=== PATIENT | female | born 1990 | race Two or more races ===

== ENCOUNTER 2025-03-07 11:14 | Emergency (ER) | payer OTHER ==
[~2025-03-07] VITALS: Ht 162.6 cm; Wt 93.6 kg
[2025-03-07 12:09] VITALS: BP 128/87; PULSE 97; RESP 16; TEMP 98; O2SAT 97
[2025-03-07] MEDS ORDERED: AZIT-43 PO (12:27)
[2025-03-07] MEDS ORDERED: BENZ100C97 PO (12:27)
[2025-03-07] MEDS ORDERED: PROM1SOL4 PO (12:27)
--- NOTE | 2025-03-07 12:28 | ED.PDOC ---
SOB-HPI HPI Comments This is a pleasant 34-year-old female with a MHx that presents for a nonpr oductive cough x two months. Symptoms come and go. Reports cough for symptoms with the last two days. Admits to sick contacts. States that her mother was recently diagnosed with a bronchitis. Patient not taking medications at this time. Denies any aggravating or alleviating symptoms. 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 Hx Family History Family History: Reviewed,noncontributory to illness Social History Smoker: Non-Smoker Alcohol: Denies ETOH Use Drugs: Denies Drug Use Lives In: Home All Other Systems: Reviewed and Negative (per hpi) Physical Exam General Appearance: No Apparent Distress, Normal HEENT: Normal ENT Inspection, Pharynx Normal, TMs Normal Neck: Full Range of Motion, Non-Tender, Normal, Normal Inspection Respiratory: Chest Non-Tender, Lungs Clear, No Accessory Muscle Use, No Respiratory Distress, Normal Breath Sounds Cardiovascular: No Edema, No JVD, No Murmur, No Gallop, Normal Peripheral Pulses, Regular Rate/Rhythm Breast Exam: Deferred Gastrointestinal: No Organomegaly, Non Tender, No Pulsatile Mass, Normal Bowel Sounds, Soft Genitalia: Deferred Pelvic: Deferred Rectal: Deferred Extremities: No calf tenderness, Normal capillary refill, Normal inspection, Normal range of motion, Non-tender, No pedal edema Musculoskeletal : Apperance: Normal Neurologic: Alert, 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 Was a procedure done?: No Differential Dx Differential Diagnosis: URI X-Ray, Labs, Meds, VS Vital Signs Date Time Temp Pulse Resp B/P (MAP) Pulse Ox O2 Delivery O2 Flow Rate FiO2 03/07/25 12:09 98.0 97 17 128/87 (101) 98 98.0 03/07/25 12:09 97 16 97 Room Air 03/07/25 11:32 16 97 Room Air* 0 21 03/07/25 11:32 97.9 92 16 130/84 (99) 97 97.9 X-Ray, Labs, Meds, VS Comment The patient is overall well-appearing nontoxic on exam. On physical exam, respirations even and unlabored, clear to auscultation bilaterally. Oxygen stable on room air. Did not have any focal lung findings and therefore chest x-ray was not indicated during this exam Low suspicion of strep pharyngitis given physical exam findings and patient's presenting symptoms No signs of meningismus on exam Overall, the patient is well hydrated and nontoxic. Plan for symptomatic control for fever and pain as needed. The patient was able to tolerate p.o. intake in the ED. at this time, patient is safe for discharge home. The exam findings and plan discussed. We will discharge home with PCP follow up and strict return precautions. Discussed that cough can linger up to 6 weeks after viral URI Supportive care and return precautions discussed Recommended vitamin C, rest, handwashing, and symptomatic care. Expect 2-week course with possibly of cough lingering up to 6 weeks. 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
== END 2025-03-07 12:32 | disposition home or self-care (01) ==
LOC: ER 11:18
DX: J40 Bronchitis, not specified as acute or chronic (principal)